=== PATIENT | female | born 1990 | race African-American/Black ===

== ENCOUNTER 2019-03-15 08:39 | Emergency (ER) | payer BC ==
[~2019-03-15] VITALS: Ht 154.9 cm; Wt 75.7 kg
[2019-03-15 08:43] VITALS: BP 154/91; PULSE 105; RESP 16; Ht 154.9 cm; Wt 75.7 kg
[2019-03-15] MEDS ORDERED: LIDOCAINE 1% (MPF) 5 ML VIAL INJ ONE (09:30)
== END 2019-03-15 10:15 | disposition home or self-care (01) ==
LOC: FTE 08:39
DX: L60.0 Ingrowing nail (principal)